=== PATIENT | male | born 1980 | race African-American/Black ===

== ENCOUNTER 2019-01-07 02:27 | Emergency (ER) | payer MEDICAID, OTHER ==
[~2019-01-07] VITALS: Ht 182.9 cm; Wt 100.0 kg
[2019-01-07 02:28] VITALS: Ht 182.9 cm; Wt 100.0 kg
--- NOTE | 2019-01-07 03:05 | ERD ---
ER Documentation Chief Complaint Chief Complaint LUQ PAIN, 05/30 X 2 WEEKS. HPI 38-year-old male, presents the emergency department, complaining of 2 weeks with worsening of left upper quadrant abdominal pain, described as sharp, burning, intermittent, 12/28. The patient reports a history of gastritis associated with H. pylori infection, today, the patient is requesting a CAT scan. Otherwise, the patient denies fever, no chills, no nausea or vomiting, no diarrhea or constipation, no weight loss, no blood in his stools. ROS All systems reviewed and are negative except as per history of present illness. Allergies Allergies: Coded Allergies: Penicillins (Verified Allergy, Unknown, 01/07/19) PMhx/Soc Medical and Surgical Hx: pt denies Medical Hx, pt denies Surgical Hx Hx Psychiatric Problems: Yes Hx Alcohol Use: No Hx Substance Use: No Hx Tobacco Use: No Smoking Status: Never smoker FmHx Family History: No diabetes, No coronary disease Physical Exam Vitals Vital Signs Date Temp Pulse Resp B/P (MAP) Pulse Ox O2 O2 Flow FiO2 Time Delivery Rate 01/07/19 98.5 99 20 142/90 98 02:28 (107) Physical Exam Const: No acute distress Head: Atraumatic Eyes: Normal Conjunctiva ENT: Normal External Ears, Nose and Mouth. Neck: Full range of motion. No meningismus. Resp: Clear to auscultation bilaterally Cardio: Regular rate and rhythm, no murmurs Abd: Soft, non tender, non distended. Normal bowel sounds Skin: No petechiae or rashes Back: No midline or flank tenderness Ext: No cyanosis, or edema Neur: Awake and alert Psych: Normal Mood and Affect Result Diagram: 01/07/19 0329 01/07/19 0328 Results 24 hrs Laboratory Tests Test 01/07/19 03:28 01/07/19 03:29 Sodium Level 143 mmol/L Potassium Level 4.1 mmol/L Chloride Level 107 mmol/L Carbon Dioxide Level 26 mmol/L Anion Gap 10 Blood Urea Nitrogen 14 mg/dl Creatinine 0.79 mg/dl Est Glomerular Filtrat Rate mL/min > 60 mL/min Glucose Level 81 mg/dl Calcium Level 9.7 mg/dl Total Bilirubin 0.4 mg/dl Direct Bilirubin 0.00 mg/dl Indirect Bilirubin 0.4 mg/dl Aspartate Amino Transf (AST/SGOT) 34 IU/L Alanine Aminotransferase (ALT/SGPT) 28 IU/L Alkaline Phosphatase 69 IU/L Total Protein 8.7 g/dl Albumin 4.8 g/dl Globulin 3.90 g/dl Albumin/Globulin Ratio 1.23 Lipase 92 U/L White Blood Count 10.2 10^3/ul Red Blood Count 5.41 10^6/ul Hemoglobin 15.5 g/dl Hematocrit 45.1 % Mean Corpuscular Volume 83.4 fl Mean Corpuscular Hemoglobin 28.7 pg Mean Corpuscular Hemoglobin Concent 34.4 g/dl Red Cell Distribution Width 13.2 % Platelet Count 255 10^3/UL Mean Platelet Volume 9.6 fl Immature Granulocytes % 0.500 % Neutrophils % 53.1 % Lymphocytes % 37.0 % Monocytes % 8.6 % Eosinophils % 0.5 % Basophils % 0.3 % Nucleated Red Blood Cells % 0.0 /100WBC Immature Granulocytes # 0.050 10^3/ul Neutrophils # 5.4 10^3/ul Lymphocytes # 3.8 10^3/ul Monocytes # 0.9 10^3/ul Eosinophils # 0.1 10^3/ul Basophils # 0.0 10^3/ul Nucleated Red Blood Cells # 0.0 10^3/ul Urine Color COLORLESS Urine Clarity CLEAR Urine pH 6.0 Urine Specific [place] 1.002 Urine Ketones NEGATIVE mg/dL Urine Nitrite NEGATIVE mg/dL Urine Bilirubin NEGATIVE mg/dL Urine Urobilinogen NEGATIVE mg/dL Urine Leukocyte Esterase NEGATIVE Mitchell/ul Urine Hemoglobin NEGATIVE mg/dL Urine Glucose NEGATIVE mg/dL Urine Total Protein NEGATIVE mg/dl Current Medications Medications Dose Sig/Maricarmen Start Time Status Last (Trade) Ordered Route PRN Stop Time Admin Dose Reason Admin 40 ml ONCE STAT 01/07/19 DC 01/07/19 Miscellaneous PO 03:20 03:37 Medication 01/07/19 03:27 (Gi Cocktail (2)) Lorazepam 1 mg ONCE ONCE 01/07/19 DC 01/07/19 (Ativan) PO 03:30 03:37 01/07/19 03:31 Patient: HANSEL ORTIZ : 1980 Age: 38 Sex: M MR #: [id number] DOS: 01/07/19 0320 Ordering MD: SALOME OCAMPO MD Location: [facility] Room/Bed: PROCEDURE: CT of the abdomen and pelvis without contrast CLINICAL INDICATION: Abdominal pain. TECHNIQUE: Spiral CT images through the abdomen and pelvis without the use of oral and without the use of intravenous contrast. The administered radiation dose is CTDI 11.64 mGy and DLP 716.29 mGy-cm. One or more of the following dose reduction techniques were used: automated exposure control, adjustment of the mA and/or kV according to patient size, or use of iterative reconstruction technique. DICOM images are available. COMPARISON: None FINDINGS: The study is limited by lack of intravenous contrast, and presence of mild motion artifact. Lower thorax: Lung bases are clear. Liver: Unenhanced liver appears uniform. Biliary: The gallbladder is unremarkable.. No biliary ductal dilatation is seen. Pancreas: Unremarkable. Spleen: The spleen is unremarkable in appearance Adrenal glands: Unremarkable in appearance. No focal nodule.. Genitourinary: Kidneys and ureters are stable without stone, hydronephrosis or hydroureter. The bladder is partially fluid-filled, and there is mild ci rcumferential bladder wall thickening including at the bladder dome. Gastrointestinal Tract: Assessment of bowel is more limited without contrast. No definite evidence of intestinal obstruction is seen. There is mild to moderate amount of colonic stool throughout, to the level rectum. Allowing for slight motion artifact, the appendix is within normal limits, measuring 6 mm in diameter with small amount of air within its lumen and no periappendiceal fat stranding visible. Lymph nodes: No adenopathy is seen... Vascular structures: Trace atherosclerotic calcification within the right iliac arterial system. No abdominal aortic aneurysm.. Peritoneal cavity: No free air, free or loculated fluid seen.. Reproductive Organs: Normal size prostate. Of incidental note is a punctate mirna cification posteriorly within the right scrotum suggesting a tiny scrotalith. Soft tissues: Small fat containing umbilical hernia. Musculoskeletal: No acute or aggressive appearing osseous abnormality. Of incidental note is transitional anatomy just superior to which there is disc space narrowing and vacuum disc present within the lower lumbar spine. Minimal curvature of the lower thoracic and lumbar spine is seen on the coronal reformats.. IMPRESSION: No evidence of urinary tract stone or secondary signs of urinary tract obstruction. There is mild urinary bladder wall thickening, which may in part reflect incomplete distension although possibility of mild cystitis should be co nsidered. No definite evidence of intestinal obstruction or appendicitis, free air or abscess. There is a mild to moderate amount of colonic stool throughout. Additional nonacute findings, including mild atherosclerotic calcification, as above. Procedures/MDM Vital signs stable. Differential diagnosis include but not limited to: Gastritis, gastroenteritis, cholelithiasis, cholecystitis, kidney stones, irritable bowel syndrome, inflammatory bowel syndrome, malabsorption syndrome, food intolerance, medication side effect, pancreatitis, diverticulitis, bowel obstruction. Physical examination and clinical presentation consistent most likely with acute gastritis. During the ED course the patient remained stable, no new complaints. The patient received treatment with GI cocktail presenting overall improvement of the symptoms. Results and clinical impression discussed with the patient who agrees with management. The patient is stable to be treated outpatient and will be discharged home with a Rx for ranitidine, some side effects of prescribed medications (headache, rash, nausea, vomiting, diarrhea, drowsiness, habituation, bleeding, hypertension, interactions with other medications) were reviewed. Follow up with the primary care provider in the next 48h is recommended. If symptoms persist, worsen or new symptoms develop, then patient should return to the ED immediately. Instructions explained and given directly by me to the patient with acknowledgment and demonstrated understanding. Disclaimer: Inadvertent spelling and grammatical errors are likely due to EHR/dictation software use and do not reflect on the overall quality of patient care. Also, please note that the electronic time recorded on this note does not necessarily reflect the actual time of the patient encounter. Departure Diagnosis: Primary Impression: GERD (gastroesophageal reflux disease) Condition: Stable Additional Instructions: Thank you very much for allowing us to participate in your care. Your health and safety is our top priority at [facility]. Call your primary care doctor TOMORROW for an appointment during the next 2-4 days and bring all the information provided. Have prescriptions filled and follow precisely the directions on the label. If the symptoms get worse and your provider is unavailable, return to the Emergency Department immediately. SALOME OCAMPO MD January 07, 2019 03:05
[2019-01-07] MEDS ORDERED: LIDOCAINE/MYLANTA 40 ML BTL PO STA (03:20)
[2019-01-07] MEDS ORDERED: LORAZEPAM 1 MG TAB PO ONE (03:30)
[2019-01-07] MEDS ORDERED: LORA-441 PO (05:18)
[2019-01-07] MEDS ORDERED: RANI150T35 PO (05:18)
[2019-01-07 05:25] VITALS: BP 133/80; PULSE 94; RESP 20
== END 2019-01-07 05:39 | disposition home or self-care (01) ==
LOC: FTE 02:27
DX: K21.9 Gastro-esophageal reflux disease without esophagitis (principal)
CPT/HCPCS: 36415; 74176; 80053; 81003; 83690; 85025; Z7502; Z7610